=== PATIENT | male | born 1995 | race Two or more races ===

== ENCOUNTER 2019-11-13 12:34 | Emergency (ER) | payer SELFPAY ==
[~2019-11-13] VITALS: Ht 180.3 cm; Wt 76.8 kg
--- NOTE | 2019-11-13 13:43 | NUR ---
MANAGER HEALTH: PT TO ROOM FROM DOLORES MENJIVAR
[2019-11-13] MEDS ORDERED: CLINDAMYCIN PMX 600MG/50ML 50 ML ONE (14:17)
[2019-11-13 14:27] LABS: MEAN CORPUSCULAR HGB CONC 32.8 g/dL (33.2-36.2); MEAN PLATELET VOLUME 7.7 fL (7.4-10.4); PLATELET COUNT 202 x10^3/uL (130-400); RED BLOOD COUNT 5.49 x10^6/uL (4.38-5.82); RED CELL DISTRIBUTION WIDTH 13.9 % (9.4-14.8)
[2019-11-13] MEDS ORDERED: SODIUM CHLORIDE FLUSH 10ML SYR IVF ONE (14:30)
[2019-11-13] MEDS ORDERED: CLINDAMYCIN PMX 600MG/50ML 50 ML IVPB ONE (14:30)
[2019-11-13 14:35] LABS: ALBUMIN 3.8 g/dL (3.4-5.0); ANION GAP 7 mmol/L (5-15); CALCIUM 9.3 mg/dL (8.5-10.1); CHLORIDE 108 mmol/L (98-107); CREATININE 0.86 mg/dL (0.7-1.3)
[2019-11-13 14:51] LABS: MD YES
[2019-11-13 14:56] LABS: EOS#(MANUAL) 0.13 x10^3/uL (0.0-0.4); EOS% (MANUAL) 1 % (1-7); LYMPHS% (MANUAL) 9 % (22-44); MONOS#(MANUAL) 0.93 x10^3/uL (0.3-2.7); MONOS% (MANUAL) 7 % (2-9); SEG#(MANUAL) 11.04 x10^3/uL (1.8-6.8); SEGS% (MANUAL) 83 % (42-75)
[2019-11-13 14:57] LABS: <PLATELET ESTIMATE> ADEQUATE; <PLT MORPHOLOGY> NORMAL PLT MORPH; <RBC MORPHOLOGY> NORMAL; PMNS WITH VACUOLES 1+
--- NOTE | 2019-11-13 15:30 | NUR ---
MEDS ADMIN PER APR. PT BACK FROM CT.
[2019-11-13] MEDS ORDERED: OMNIPAQUE 350 MG/ML, 100ML BOTTLE ONE (15:35)
--- NOTE | 2019-11-13 15:43 | NUR ---
ALL RESULTS ARE BACK AT THIS TIME. CHART UP FOR RECHECK.
--- NOTE | 2019-11-13 16:05 | NUR ---
TO CONSULT WITH ENT.
[2019-11-13 16:26] VITALS: BP 112/82
[2019-11-13] MEDS ORDERED: LIDOCAINE 2% VISCOUS 15 ML UDC ONE (16:29)
[2019-11-13] MEDS ORDERED: LIDOCAINE-MPF 1%, 5ML ONE (16:29)
[2019-11-13] MEDS ORDERED: LIDOCAINE 2% VISCOUS 15 ML UDC MM ONE (16:30)
[2019-11-13] MEDS ORDERED: LIDOCAINE 1%, 10ML INFIL ONE (16:30)
--- NOTE | 2019-11-13 16:45 | NUR ---
MEDS PULLED FOR PROVIDER ADMIN. MD AT BEDSIDE TO DRAIN THROAT ABSCESS. SUCTION SET UP. PT AGREES TO PROCEDURE.
== END 2019-11-13 17:30 | disposition home or self-care (01) ==
LOC: ED 15:33
DX: J36 Peritonsillar abscess (principal); Z88.0 Allergy status to penicillin
CPT/HCPCS: 36415; 42700; 70491; 80048; 82040; 85025; 96365; 99285; Q9967